=== PATIENT | female | born 1945 | race Caucasian/White ===

== ENCOUNTER 2020-05-11 13:46 | Emergency (ER) | payer OTHER, SELFPAY ==
[~2020-05-11] VITALS: Ht 154.9 cm; Wt 74.4 kg
[~2020-05-11 13:46] MED LIST: ASPIRIN81 MG PO; ATENOLOL25 MG PO; BETIMOL5 M1 OP; CIPROFLOXACIN250 M2 PO; ELA10 PO; FOSAMAX70 MG PO; GLIPIZIDE5 MG PO; IMDUR30 MG PO; LATANOPROST2.5 ML OP; LISINOPRIL30 MG PO; NOR10T PO; PERCOCET1 TA2 PO; PRO40 PO; SIMVASTATIN20 M1 PO; SOMA350 MG PO; ZOF4 PO; [UNRECOGNIZED DRUG - OTHER] OU
[2020-05-11 13:51] VITALS: BP 154/81; Ht 154.9 cm; Wt 74.4 kg
== END 2020-05-11 14:41 | disposition home or self-care (01) ==
LOC: ED 13:46
DX: J06.9 Acute upper respiratory infection, unspecified (principal); I10 Essential (primary) hypertension; E11.9 Type 2 diabetes mellitus without complications; E78.00 Pure hypercholesterolemia, unspecified; M79.7 Fibromyalgia; M19.90 Unspecified osteoarthritis, unspecified site; Z20.828 Contact with and (suspected) exposure to other viral communicable diseases; Z88.1 Allergy status to other antibiotic agents; Z88.8 Allergy status to other drugs, medicaments and biological substances
CPT/HCPCS: U0003-CS